=== PATIENT | female | born 1975 | race Caucasian/White ===

== ENCOUNTER → 2016-07-20 | Outpatient (CLI) | payer OTHER ==
[2016-07-22 08:45] LABS: HBsAg Screen Negative (Negative); HSV 2 IgG, Type Spec <0.91 index (0.00-0.90); Hep A Ab, IgM Negative (Negative); Hep B Core Ab, IgM Negative (Negative); Hep C Virus Ab <0.1 (0.0-0.9); Rapid Plasma Reagin, Quant Non Reactive (NonRea<1:1)
[2016-07-22 09:38] LABS: HIV Screen 4th Generation wRfx Non Reactive (Non Reactive)
[2016-07-22 15:00] LABS: HSV, IgM I/II Combination 1.61 Ratio (0.00-0.90)
[2016-07-23 10:40] LABS: Neisseria gonorrhoeae, NAA Negative (Negative)
== END ==
LOC: LAB 16:45
PROVIDERS: Nurse Practitioner Obstetrics & Gynecology
DX: Z72.51 High risk heterosexual behavior (principal)
CPT/HCPCS: G0432